=== PATIENT | female | born 1940 | race Asian ===

== ENCOUNTER 2016-12-09 13:45 | Observation (INO) | payer OTHER ==
[~2016-12-09] VITALS: Ht 154.9 cm; Wt 48.7 kg
[~2016-12-09 13:45] MED LIST: COUMADIN,JANTOVE1 MG PO; COUMADIN2 MG PO; FLEXERIL10 MG PO; HYDROCHLOROTH12.5 MG PO; INDERIDE 40/1 TABLET PO; METHOTREXATE2.5 MG PO; NAPROSYN500 MG PO; PERCOCET 5/31 TABLET PO; PREDNISONE1 M1 NG; PREDNISONE5 MG PO
[2016-12-09 14:29] LABS: HEMATOCRIT 46.2 % (36.0-46.0); MCH 30.2 PG (29.0-34.0); MCHC 34.2 G/DL (30.0-36.0); MCV 88.3 FL (83-99); MEAN PLAT.VOLUME 9.6 uM^3 (9.5-12.4); PLATELET COUNT 159 K/uL (156-360); RBC DIS.WIDTH-CV 16.1 % (11.8-14.6); RBC DIS.WIDTH-SD 51.1 % (39-53); RED BLOOD COUNT 5.23 M/uL (3.80-5.20)
[2016-12-09 14:47] LABS: CHLORIDE 108 mEq/L (99-109); POTASSIUM 3.9 mEq/L (3.7-5.4); SODIUM 139 mEq/L (136-147)
[2016-12-09 14:49] LABS: GLUCOSE 96 mg/dL (70-99)
[2016-12-09 14:50] LABS: ANION GAP 12 MEQ/L (2-14)
[2016-12-09 14:53] LABS: GFR ESTIMATE (CALCULATED) > 59 mL/min/
[2016-12-09 14:54] LABS: UREA NITROGEN (BUN) 12 mg/dL (9-23)
[2016-12-09 15:00] LABS: TROP-I INTERPRETATION NEGATIVE; TROPONIN-I < 0.01 ng/mL (0.0-0.30)
[2016-12-09 15:22] LABS: PROTHROMBIN TIME 20.4 (9.2-11.2)
[2016-12-09] MEDS ORDERED: HYDROCHLOROTH12.5 M3 PO (15:48)
[2016-12-09] MEDS ORDERED: DICLOFENAC SOD100 G1 TP (15:50)
[2016-12-09 18:32] LABS: TOTAL BILIRUBIN 0.4 mg/dL (0.0-1.0)
[2016-12-09 18:33] LABS: ALKALINE PHOSPHATASE 31 IU/L (3-129)
[2016-12-09 18:35] LABS: DIRECT BILIRUBIN 0.2 mg/dL (0.0-0.3)
[2016-12-09 18:36] LABS: LIPASE 18 U/L (1.0-51.0)
[2016-12-09 21:04] LABS: TROP-I INTERPRETATION NEGATIVE; TROPONIN-I 0.01 ng/mL (0.0-0.30)
[2016-12-09 23:42] VITALS: BP 157/66
[2016-12-10 03:04] LABS: TROP-I INTERPRETATION NEGATIVE; TROPONIN-I 0.16 ng/mL (0.0-0.30)
[2016-12-10 04:09] VITALS: BP 146/63
[2016-12-10 06:27] LABS: HEMATOCRIT 43.8 % (36.0-46.0); MCH 30.6 PG (29.0-34.0); MCHC 33.8 G/DL (30.0-36.0); MCV 90.5 FL (83-99); MEAN PLAT.VOLUME 10.5 uM^3 (9.5-12.4); PLATELET COUNT 146 K/uL (156-360); RBC DIS.WIDTH-CV 16.1 % (11.8-14.6); RBC DIS.WIDTH-SD 53.1 % (39-53); RED BLOOD COUNT 4.84 M/uL (3.80-5.20)
[2016-12-10 06:28] LABS: WHITE BLOOD COUNT 3.4 K/uL (4.1-10.2)
[2016-12-10 06:35] LABS: INTER. NORMALIZED RATIO 1.9; PROTHROMBIN TIME 19.4 (9.2-11.2)
[2016-12-10 06:45] LABS: ANION GAP 7 MEQ/L (2-14); CHLORIDE 108 MEQ/L (99-109); GFR ESTIMATE (CALCULATED) > 59 mL/min/; GLUCOSE 122 mg/dL (70-99); POTASSIUM 4.4 MEQ/L (3.7-5.4); SAMPLE HEMOLYSIS CHECK 0; SAMPLE ICTERIC CHECK 0; SAMPLE LIPEMIA CHECK 0; SODIUM 138 MEQ/L (136-147); UREA NITROGEN (BUN) 10 mg/dL (9-23)
[2016-12-10 08:58] VITALS: BP 138/67
[2016-12-10 09:46] LABS: TROP-I INTERPRETATION NEGATIVE; TROPONIN-I 0.02 ng/mL (0.0-0.30)
[2016-12-10 12:29] VITALS: BP 142/64
[2016-12-10] MEDS ORDERED: PREDNISONE10 MG PO (14:08)
[2016-12-10] MEDS ORDERED: PROAIR HFA8.5 GM IH (14:09)
[2016-12-10] MEDS ORDERED: LABETALOL HCL100 MG PO (14:10)
[2016-12-10] MEDS ORDERED: HYDROCHLOROTHIA25 MG PO (14:10)
[2016-12-10] MEDS ORDERED: TESSALON PERLE100 MG PO (14:10)
== END 2016-12-10 15:26 | disposition home or self-care (01) ==
LOC: EME 13:45 → EDOF 16:01 → 5WEST 19:00
PROVIDERS: Hospitalist
DX: R07.89 Other chest pain (principal); J40 Bronchitis, not specified as acute or chronic; I10 Essential (primary) hypertension; R06.02 Shortness of breath; I35.0 Nonrheumatic aortic (valve) stenosis; M06.9 Rheumatoid arthritis, unspecified; R05 Cough; Z86.718 Personal history of other venous thrombosis and embolism; Z79.01 Long term (current) use of anticoagulants; Z79.82 Long term (current) use of aspirin; Z88.0 Allergy status to penicillin; F17.200 Nicotine dependence, unspecified, uncomplicated; R94.31 Abnormal electrocardiogram [ECG] [EKG]
CPT/HCPCS: 71020; 71275; 80048; 80076; 82272; 83690; 84484; 85027; 85610; 93005; 99281; 99285; C9113; G0378; J0360; J7030; J7512

== ENCOUNTER 2017-04-03 17:05 | Emergency (ER) | payer OTHER ==
[~2017-04-03] VITALS: Ht 157.5 cm; Wt 47.4 kg
[~2017-04-03 17:05] MED LIST changes: +DICLOFENAC SOD100 G1 TP; +HYDROCHLOROTH12.5 M3 PO; +HYDROCHLOROTHIA25 MG PO; +LABETALOL HCL100 MG PO; +PREDNISONE10 MG PO; +PROAIR HFA8.5 GM IH; +TESSALON PERLE100 MG PO
[2017-04-03 17:52] LABS: MCH 31.1 PG (29.0-34.0); MCHC 33.6 G/DL (30.0-36.0); MCV 92.4 FL (83-99); PLATELET COUNT 230 K/uL (156-360); RBC DIS.WIDTH-CV 17.2 % (11.8-14.6); RBC DIS.WIDTH-SD 55.7 % (39-53); RED BLOOD COUNT 4.76 M/uL (3.80-5.20)
[2017-04-03 18:09] LABS: CHLORIDE 105 mEq/L (99-109); POTASSIUM 3.9 mEq/L (3.7-5.4); SODIUM 140 mEq/L (136-147)
[2017-04-03 18:11] LABS: GLUCOSE 91 mg/dL (70-99)
[2017-04-03 18:13] LABS: ANION GAP 7 MEQ/L (2-14)
[2017-04-03 18:15] LABS: GFR ESTIMATE (CALCULATED) 57 mL/min/
[2017-04-03 18:16] LABS: UREA NITROGEN (BUN) 16 mg/dL (9-23)
[2017-04-03 19:03] LABS: INTER. NORMALIZED RATIO 3.4; PROTHROMBIN TIME 35.5 (9.2-11.2); PTT 40.6 (25-32)
[2017-04-03] MEDS ORDERED: TRAMADOL HCL50 MG PO (19:29)
[2017-04-03 19:35] VITALS: BP 165/79
== END 2017-04-03 19:34 | disposition home or self-care (01) ==
LOC: EME 17:05
DX: S29.011A Strain of muscle and tendon of front wall of thorax, initial encounter (principal); D68.9 Coagulation defect, unspecified; X50.9XXA Other and unspecified overexertion or strenuous movements or postures, initial encounter; Y92.002 Bathroom of unspecified non-institutional (private) residence as the place of occurrence of the external cause; I10 Essential (primary) hypertension; Z79.01 Long term (current) use of anticoagulants; F17.200 Nicotine dependence, unspecified, uncomplicated
CPT/HCPCS: 71020; 80048; 85027; 85610; 85730; 99281; 99285

== ENCOUNTER 2017-08-19 12:47 | Emergency (ER) | payer OTHER ==
[~2017-08-19] VITALS: Ht 154.9 cm; Wt 47.7 kg
[~2017-08-19 12:47] MED LIST changes: +TRAMADOL HCL50 MG PO
[2017-08-19 14:29] LABS: EOSINOPHIL (%) 2.6 % (0-5); EOSINOPHIL COUNT 0.2 K/uL (0-0.3); HEMATOCRIT 42.1 % (36.0-46.0); IMMATURE GRANULOCYTE (%) 0.7 % (0.0-0.7); IMMATURE GRANULOCYTE COUNT 0.1 K/uL; INSTRUMENT ABS NEUTROPHIL CT 5.9 K/uL; LYMPHOCYTE COUNT 2.2 K/uL (1.0-2.8); MCHC 33.3 G/DL (30.0-36.0); MCV 93.3 FL (83-99); MEAN PLAT.VOLUME 9.4 uM^3 (9.5-12.4); MONOCYTE (%) 5.5 % (3-12); MONOCYTE COUNT 0.5 K/uL (0-0.8); NEUTROPHIL (%) 66.3 % (45-76); NEUTROPHIL COUNT 5.9 K/uL (1.8-6.4); PLATELET COUNT 288 K/uL (156-360); RBC DIS.WIDTH-CV 17.3 % (11.8-14.6); RBC DIS.WIDTH-SD 57.3 % (39-53); RED BLOOD COUNT 4.51 M/uL (3.80-5.20); WHITE BLOOD COUNT 8.9 K/uL (4.1-10.2)
[2017-08-19 14:35] LABS: INTER. NORMALIZED RATIO 3.3; PROTHROMBIN TIME 38.4 SEC (10.2-12.9)
[2017-08-19 14:37] LABS: CHLORIDE 108 mEq/L (99-109); POTASSIUM 3.7 mEq/L (3.7-5.4); SODIUM 140 mEq/L (136-147)
[2017-08-19 14:39] LABS: GLUCOSE 97 mg/dL (70-99)
[2017-08-19 14:40] LABS: ANION GAP 7 MEQ/L (2-14)
[2017-08-19 14:41] LABS: TOTAL BILIRUBIN 1.1 mg/dL (0.0-1.0)
[2017-08-19 14:43] LABS: ALKALINE PHOSPHATASE 34 IU/L (3-129); GFR ESTIMATE (CALCULATED) > 59 mL/min/
[2017-08-19 14:44] LABS: UREA NITROGEN (BUN) 11 mg/dL (9-23)
[2017-08-19 16:30] VITALS: BP 139/60
== END 2017-08-19 16:30 | disposition home or self-care (01) ==
LOC: EME 12:47
PROVIDERS: Physician Assistant
DX: M96.841 Postprocedural hematoma of a musculoskeletal structure following other procedure (principal); Z95.820 Peripheral vascular angioplasty status with implants and grafts; M79.671 Pain in right foot; Z86.718 Personal history of other venous thrombosis and embolism; Z79.01 Long term (current) use of anticoagulants; Z79.52 Long term (current) use of systemic steroids; F17.200 Nicotine dependence, unspecified, uncomplicated
CPT/HCPCS: 80053; 83605; 85025; 85610; 87040; 93971; 99281; 99284